=== PATIENT | male | born 1965 | race Caucasian/White ===

== ENCOUNTER 2022-03-05 14:50 | Inpatient (IN) | payer BC, OTHER ==
[~2022-03-05] VITALS: Ht 170.2 cm; Wt 66.1 kg
[2022-03-05] MEDS ORDERED: IPRATROPIUM BROM 0.5 MG/2.5ML INH SOL HHN ONE (15:15)
[2022-03-05] MEDS ORDERED: methylPREDNISolone SOD SUCC 125 MG/2 ML VL IV ONE (15:15)
[2022-03-05] MEDS ORDERED: ALBUTEROL SULF 2.5 MG/0.5ML(0.5%) NEB SOLN HHN ONE (15:15)
[2022-03-05 15:43] LABS: Basophils # (auto) 0.1 10 ^3/uL (0-0.2); Basophils % (auto) 0.4 % (0.0-2.0); Eosinophils # (auto) 0.1 10 ^3/uL (0-0.8); Eosinophils % (auto) 0.7 % (0.0-7.0); Hematocrit 41.4 % (41.0-53.0); Hemoglobin 13.7 g/dL (13.5-17.5); Lymphocytes # (auto) 1.9 10 ^3/uL (0.4-5.4); Lymphocytes % (auto) 12.9 % (10.0-50.0); Mean Corpuscular Hemoglobin 31.5 pg (28.0-32.0); Mean Corpuscular Volume 95.4 fL (80.0-100.0); Monocytes # (auto) 1.4 10 ^3/uL (0-1.3); Monocytes % (auto) 9.6 % (0.0-12.0); Neutrophils # (auto) 11.1 10 ^3/uL (1.6-8.6); Neutrophils % (auto) 76.4 % (37.0-80.0); Red Blood Cells 4.34 10^6/uL (4.5-5.90); White Blood Cell 14.5 10^3/uL (4.4-10.8)
[2022-03-05 15:51] LABS: Albumin 3.9 g/dL (3.4-5.0); BUN/Creatinine Ratio 9.9; Calcium 9.1 mg/dL (8.5-10.1); Magnesium 2.2 mg/dL (1.6-2.6); Potassium 4.1 mmol/L (3.5-5.1)
[2022-03-05 15:53] LABS: Urine WBC None Seen /hpf (0 - 3)
[2022-03-05 15:54] LABS: Bilirubin, Total 0.4 mg/dL (0.2-1.0); Total Protein 7.2 g/dL (6.4-8.2)
[2022-03-05 15:56] LABS: INR 1.06 (0.9-1.15); Partial Thromboplastin Time 32.1 sec (23.6-33.0)
[2022-03-05 16:10] LABS: Urine Bacteria NONE SEEN /hpf (None Seen); Urine Blood Negative /uL (Negative); Urine Specific Gravity 1.004 (1.001-1.035)
[2022-03-05] MEDS ORDERED: IOHEXOL 350 MG/ML 100ML IJ ONE (16:29)
[2022-03-05] MEDS ORDERED: ONDANSETRON HCL 4 MG/2 ML VIAL IV PRN (19:15)
[2022-03-05] MEDS ORDERED: MORPHINE SULFATE INJ 2 MG/ml SYRG IV PRN (19:15)
[2022-03-05] MEDS ORDERED: ZOLPIDEM TARTRATE 5 MG TAB PO PRN (19:15)
[2022-03-05] MEDS ORDERED: NITROGLYCERIN 0.4 MG SL TAB SL PRN (19:15)
[2022-03-05] MEDS ORDERED: ACETAMINOPHEN 325 MG TAB PO PRN (19:15)
[2022-03-05] MEDS ORDERED: DEXTROSE (50%) 50ML SYRG IV PRN (19:15)
[2022-03-05] MEDS: METOPROLOL TARTRATE 25 MG TAB PO SCH (22:12)
[2022-03-05] MEDS: ATORVASTATIN 20 MG TAB PO SCH (22:12)
[2022-03-05] MEDS: ENOXAPARIN SOD 80 MG/0.8ML SYRINGE SC SCH (22:13)
[2022-03-05] MEDS: InsuLIN REG 1unit/0.01ml Soln (100units/ml) SC SCH (22:14)
[2022-03-05] MEDS: ACCU-CHEK COMFORT CURVE STRIP VI SCH (22:14)
[2022-03-06] VITALS (7 sets, daily range): BP systolic 101–142; BP diastolic 62–92
[2022-03-06] MEDS: ACCU-CHEK COMFORT CURVE STRIP VI SCH ×4 (06:51→22:01)
[2022-03-06] MEDS: InsuLIN REG 1unit/0.01ml Soln (100units/ml) SC SCH ×4 (06:51→22:00)
[2022-03-06 07:00] LABS: Basophils # (auto) 0 10 ^3/uL (0-0.2); Basophils % (auto) 0.2 % (0.0-2.0); Eosinophils # (auto) 0 10 ^3/uL (0-0.8); Hematocrit 40.9 % (41.0-53.0); Hemoglobin 13.5 g/dL (13.5-17.5); Lymphocytes % (auto) 5.6 % (10.0-50.0); Mean Corpuscular Hemoglobin 31.6 pg (28.0-32.0); Mean Corpuscular Hgb Conc. 33.1 g/dL (32.0-36.0); Mean Corpuscular Volume 95.5 fL (80.0-100.0); Monocytes # (auto) 0.8 10 ^3/uL (0-1.3); Monocytes % (auto) 4.4 % (0.0-12.0); Neutrophils # (auto) 16.5 10 ^3/uL (1.6-8.6); Neutrophils % (auto) 89.8 % (37.0-80.0); Red Blood Cells 4.28 10^6/uL (4.5-5.90); Red Cell Distribution Width 12.9 % (11.8-14.3); White Blood Cell 18.4 10^3/uL (4.4-10.8)
[2022-03-06 07:29] LABS: Potassium 3.9 mmol/L (3.5-5.1)
[2022-03-06 07:39] LABS: BUN/Creatinine Ratio 16.7; Calcium 9.1 mg/dL (8.5-10.1); Magnesium 2.3 mg/dL (1.6-2.6)
[2022-03-06] MEDS: METOPROLOL TARTRATE 25 MG TAB PO SCH ×2 (09:21→22:05)
[2022-03-06] MEDS: CLOPIDOGREL BISULFATE 75 MG TAB PO SCH (09:21)
[2022-03-06] MEDS: ASPirin 81 mg TAB PO SCH (09:21)
[2022-03-06] MEDS: DOCUSATE SOD 100 MG CAP PO SCH (09:21)
[2022-03-06] MEDS: ENOXAPARIN SOD 80 MG/0.8ML SYRINGE SC SCH ×2 (09:22→22:01)
[2022-03-06] MEDS: LISINOPRIL 10 MG TAB PO SCH (09:22)
[2022-03-06] MEDS: ATORVASTATIN 20 MG TAB PO SCH (21:58)
[2022-03-07] VITALS (10 sets, daily range): BP systolic 91–110; BP diastolic 50–70
[2022-03-07] MEDS: InsuLIN REG 1unit/0.01ml Soln (100units/ml) SC SCH ×4 (06:03→21:41)
[2022-03-07] MEDS: ACCU-CHEK COMFORT CURVE STRIP VI SCH ×4 (06:03→21:35)
[2022-03-07] MEDS ORDERED: ADENOSINE 57 MG in GIVE UN-DILUTED 0 ML IV STA (09:03)
[2022-03-07] MEDS: CLOPIDOGREL BISULFATE 75 MG TAB PO SCH (11:19)
[2022-03-07] MEDS: DOCUSATE SOD 100 MG CAP PO SCH (11:19)
[2022-03-07] MEDS: ASPirin 81 mg TAB PO SCH (11:19)
[2022-03-07] MEDS: LISINOPRIL 10 MG TAB PO SCH (11:19)
[2022-03-07] MEDS: METOPROLOL TARTRATE 25 MG TAB PO SCH ×2 (11:19→21:35)
[2022-03-07] MEDS: ENOXAPARIN SOD 80 MG/0.8ML SYRINGE SC SCH ×2 (11:20→21:35)
[2022-03-07] MEDS ORDERED: ALBUTEROL SULF 2.5 MG/0.5ML(0.5%) NEB SOLN NEB PRN (13:45)
[2022-03-07] MEDS: LORazepam 0.5 MG TAB PO PRN ×2 (14:39→21:45)
[2022-03-07] MEDS: ATORVASTATIN 20 MG TAB PO SCH (21:35)
[2022-03-08] VITALS (10 sets, daily range): BP systolic 95–134; BP diastolic 62–83
[2022-03-08] MEDS: ACCU-CHEK COMFORT CURVE STRIP VI SCH ×4 (06:30→21:40)
[2022-03-08] MEDS: InsuLIN REG 1unit/0.01ml Soln (100units/ml) SC SCH ×4 (06:30→21:41)
[2022-03-08] MEDS: ENOXAPARIN SOD 80 MG/0.8ML SYRINGE SC SCH ×2 (08:59→21:39)
[2022-03-08] MEDS: CLOPIDOGREL BISULFATE 75 MG TAB PO SCH (08:59)
[2022-03-08] MEDS: ASPirin 81 mg TAB PO SCH (11:12)
[2022-03-08] MEDS: DOCUSATE SOD 100 MG CAP PO SCH (11:12)
[2022-03-08] MEDS: LISINOPRIL 10 MG TAB PO SCH (11:13)
[2022-03-08] MEDS: METOPROLOL TARTRATE 25 MG TAB PO SCH ×2 (11:13→22:31)
[2022-03-08] MEDS ORDERED: IODIXANOL 320MG/ML 100ML BTL IV ONE (12:46)
[2022-03-08] MEDS ORDERED: fentaNYL CITRATE 100 MCG/2 ML VL ONE (13:07)
[2022-03-08] MEDS ORDERED: MIDAZOLAM HCL 2MG/2ML 2ml VIAL (1mg/ml) ONE (13:07)
[2022-03-08] MEDS ORDERED: LIDOCAINE 2%HCL (LOCAL ANESTH.) INJ 10ml MDV ONE (13:09)
[2022-03-08] MEDS ORDERED: SODIUM CHL 0.9% 0 ML ONE (13:09)
[2022-03-08] MEDS ORDERED: VERAPAMIL 2.5MG/ML INJ 2ML VIAL IV ONE (13:09)
[2022-03-08] MEDS ORDERED: ANGIOMAX 250 MG VIAL IV ONE (13:16)
[2022-03-08] MEDS ORDERED: HEPARIN SODIUM (PORCINE) 5000 UNITS/ML 1ML VIAL ONE (13:23)
[2022-03-08] MEDS: SODIUM CHLOR 0.9% PF (SALINE LOCK) 10ML VIAL/SYR IV SCH ×2 (14:07→22:30)
[2022-03-08] MEDS: ATORVASTATIN 20 MG TAB PO SCH (21:38)
[2022-03-08] MEDS: LORazepam 0.5 MG TAB PO PRN (21:41)
[2022-03-09 05:00] VITALS: BP 121/80
[2022-03-09 05:39] LABS: Basophils # (auto) 0.1 10 ^3/uL (0-0.2); Basophils % (auto) 0.5 % (0.0-2.0); Eosinophils # (auto) 0.6 10 ^3/uL (0-0.8); Eosinophils % (auto) 5.5 % (0.0-7.0); Lymphocytes # (auto) 2.8 10 ^3/uL (0.4-5.4); Lymphocytes % (auto) 25.6 % (10.0-50.0); Mean Corpuscular Hgb Conc. 34.9 g/dL (32.0-36.0); Mean Corpuscular Volume 94.5 fL (80.0-100.0); Monocytes # (auto) 0.8 10 ^3/uL (0-1.3); Monocytes % (auto) 7.3 % (0.0-12.0); Neutrophils # (auto) 6.6 10 ^3/uL (1.6-8.6); Neutrophils % (auto) 61.1 % (37.0-80.0); Nucleated Red Blood Cells % 0.1 %; Red Blood Cells 4.55 10^6/uL (4.5-5.90); Red Cell Distribution Width 13.3 % (11.8-14.3); White Blood Cell 10.8 10^3/uL (4.4-10.8)
[2022-03-09 06:08] LABS: Albumin 3.4 g/dL (3.4-5.0); Magnesium 2.7 mg/dL (1.6-2.6); Potassium 4.1 mmol/L (3.5-5.1)
[2022-03-09 06:11] LABS: Bilirubin, Total 0.6 mg/dL (0.2-1.0); Total Protein 7.2 g/dL (6.4-8.2)
[2022-03-09] MEDS: ACCU-CHEK COMFORT CURVE STRIP VI SCH ×2 (06:42→11:30)
[2022-03-09] MEDS: InsuLIN REG 1unit/0.01ml Soln (100units/ml) SC SCH ×2 (06:42→11:30)
[2022-03-09] MEDS: SODIUM CHLOR 0.9% PF (SALINE LOCK) 10ML VIAL/SYR IV SCH (06:42)
[2022-03-09] MEDS ORDERED: ERGOCALCIFEROL 50,000 UNIT(1.25MG) CAP PO SCH (07:15)
[2022-03-09 09:00] VITALS: BP 98/59
[2022-03-09] MEDS: ASPirin 81 mg TAB PO SCH (09:16)
[2022-03-09] MEDS: DOCUSATE SOD 100 MG CAP PO SCH (09:17)
[2022-03-09] MEDS: CLOPIDOGREL BISULFATE 75 MG TAB PO SCH (09:17)
[2022-03-09] MEDS: ENOXAPARIN SOD 80 MG/0.8ML SYRINGE SC SCH (09:18)
[2022-03-09] MEDS: METOPROLOL TARTRATE 25 MG TAB PO SCH (09:30)
[2022-03-09] MEDS: LISINOPRIL 10 MG TAB PO SCH (09:30)
[2022-03-09] MEDS: LORazepam 0.5 MG TAB PO PRN (09:31)
[2022-03-09 13:00] VITALS: BP 107/54
[2022-03-09] MEDS ORDERED: LISI-716 PO (15:25)
[2022-03-09] MEDS ORDERED: LEV25T PO (15:25)
[2022-03-09] MEDS ORDERED: ASPI-325 PO (15:25)
[2022-03-09] MEDS ORDERED: ERGO1CAP23 PO (15:25)
[2022-03-09] MEDS ORDERED: ATOR20TA50 PO (15:25)
[2022-03-09] MEDS ORDERED: MET25T PO (15:25)
[2022-03-09] MEDS ORDERED: ALBUAER3 IN (15:28)
[2022-03-09 16:33] VITALS: BP 130/74
[2022-03-09 16:37] VITALS: BP 150/93
[2022-03-10] MEDS ORDERED: LEVOTHYROXINE SODIUM 25 MCG TAB PO SCH (07:00)
== END 2022-03-09 18:05 | disposition home or self-care (01) | DRG 287 ==
LOC: ER 14:50 → TELE 19:11 → TELE-WESTW 03-06 03:34
PROVIDERS: ADMIT Hospitalist; ATTEND Internal Medicine
PROC: 4A023N7 Measurement of Cardiac Sampling and Pressure, Left Heart, Percutaneous Approach (ICD-10-PCS; principal; 2022-03-08)
PROC: B211YZZ Fluoroscopy of Multiple Coronary Arteries using Other Contrast (ICD-10-PCS; 2022-03-08)
PROC: B215YZZ Fluoroscopy of Left Heart using Other Contrast (ICD-10-PCS; 2022-03-08)
DX: R07.9 Chest pain, unspecified (principal); I10 Essential (primary) hypertension; I25.10 Atherosclerotic heart disease of native coronary artery without angina pectoris; E11.9 Type 2 diabetes mellitus without complications; E78.5 Hyperlipidemia, unspecified; F17.210 Nicotine dependence, cigarettes, uncomplicated; Z20.822 Contact with and (suspected) exposure to COVID-19; J44.9 Chronic obstructive pulmonary disease, unspecified; Z28.310 Unvaccinated for COVID-19; Z82.3 Family history of stroke; Z82.49 Family history of ischemic heart disease and other diseases of the circulatory system; Z90.49 Acquired absence of other specified parts of digestive tract
CPT/HCPCS: 36415; 71045; 71275; 78452; 80048; 80053; 80061; 81001; 82306; 82962; 83036; 83735; 83880; 84439; 84443; 84484; 85025; 85379; 85610; 85730; 93005; 93017; 93306; 93458; 94640; 94644; 96374; 99152; G0378; J0153; J1815; J2001; J2250; Q9967